=== PATIENT | female | born 1970 | race Caucasian/White ===

== ENCOUNTER 2021-12-06 00:50 | Day surgery (SDC) | payer OTHER, SELFPAY ==
[2021-11-18 10:14] VITALS: BMI 32.5
[2021-12-06 11:16] VITALS: BMI 32.5
[2021-12-06 11:18] VITALS: BP 124/74; PULSE 80; RESP 16; TEMP 36.7; O2SAT 99
--- NOTE | 2021-12-06 11:20 | PM.HPGS ---
History of Present Illness History of Present Illness Consent: Risks, benefits, and alternatives have been discussed and questions answered. Patient agrees to proceed with procedure. Chief complaint: bloating,heartburn,diarrhea,change in bowel habits Narrative: Suzan Mcintosh is a 51 year old female Was had a great deal of problems with heartburn. She has been using Pepcid with only fair results. It has gotten worse lately. She denies dysphagia. She also has had a change in bowel habits. She has had diarrhea 2 or 3 times a week. She will occasionally become constipated but her primary issue was diarrhea. She is also having a chronic periumbilical pain. There is no weight loss. There is no family history of inflammatory bowel disease or celiac disease. Review of Systems Review of Systems: All systems reviewed & are unremarkable except as noted in HPI and below PMFSH Past Medical History Medical History Bloating Change in bowel habits Heartburn Hx of malignant neoplasm of breast Lymph node cancer Obesity Periumbilical abdominal pain Surgical History Surgical History H/O hysterectomy for benign disease History of mastectomy, total Social History Social History Years smoked: 30 Smoking status: Former smoker Tobacco type: cigarettes Alcohol intake: current Alcohol use details: social Substance use: never Substance use type: does not use Living arrangements: with family Spiritual care concerns: No Meds Home Medications and Allergies Home Medications Medication Instructions Recorded Confirmed Type anastrozole 1 mg tablet 1 mg PO DAILY 11/05/21 11/18/21 History cholecalciferol (vitamin D3) 50 50 mcg PO DAILY 11/05/21 11/18/21 History mcg (2,000 unit) capsule famotidine 20 mg tablet (Pepcid) 20 mg PO BID 11/18/21 11/18/21 History Allergies Allergy/AdvReac Type Severity Reaction Status Date / Time No Known Allergies Allergy Verified 12/06/21 11:14 Vital Signs Vital Signs - 24 hr 12/06/21 11:18 Temperature 36.7 C Pulse Rate 80 Respiratory Rate 16 Blood Pressure 124/74 Pulse Oximetry 99 Oxygen Delivery Room Air Exam Const: General: alert Orientation/consciousness: patient oriented x3 Resp: Auscultation: clear to auscultation bilaterally Cardio: Rhythm: regular rhythm GI: GI Palp: Yes Soft to palpation and No Tenderness to palpation present (GI) Neuro: General: patient oriented x3 Assessment and Plan Assessment and plan (1) Heartburn: Code(s): R12 - Heartburn Status: Acute Assessment and Plan: EGD with possible biopsy or dilatation or cautery. (2) Change in bowel habits: Code(s): R19.4 - Change in bowel habit Status: Acute Assessment and Plan: Colonoscopy with possible biopsy or polypectomy or cautery or injection of substances.
[2021-12-06] MEDS: LACTATED RINGERS 1,000 ML 150 ML IV CONT (11:27)
--- NOTE | 2021-12-06 12:13 | WPDANESEPPF ---
Anes - Initial Pre Proc Eval Procedure: Operation Date: 12/06/21 12:30 Proposed Procedures p Esophagogastroduodenoscopy & Colonoscopy - Rolando Peguero MD Date/Time: 12/06/21 12:13 Surgeon: Rolando Peguero MD Pre Op Diagnosis: bloating,heartburn,diarrhea,change in bowel habits Patient Data Age: 51 Gender: F Height: 1.45 m Weight: 68.3 kg Last Vital Signs Temp 98.1 F 12/06/21 11:18 Pulse 80 12/06/21 11:18 Resp 16 12/06/21 11:18 BP 124/74 12/06/21 11:18 Pulse Ox 99 12/06/21 11:18 O2 Del Method Room Air 12/06/21 11:18 Allergies Allergy/AdvReac Type Severity Reaction Status Date / Time No Known Allergies Allergy Verified 12/06/21 11:14 Home Medications Medication Instructions Recorded Confirmed Type anastrozole 1 mg tablet 1 mg PO DAILY 11/05/21 11/18/21 History cholecalciferol (vitamin D3) 50 50 mcg PO DAILY 11/05/21 11/18/21 History mcg (2,000 unit) capsule famotidine 20 mg tablet (Pepcid) 20 mg PO BID 11/18/21 11/18/21 History Patient hx anesthesia problems: none Family hx anesthesia problems: none Results Review: All pre-operative results and documents have been reviewed as part of the pre-operative evaluation. [facility] Past Medical History Medical History Bloating Change in bowel habits Heartburn Hx of malignant neoplasm of breast Lymph node cancer Obesity Periumbilical abdominal pain Surgical History Surgical History H/O hysterectomy for benign disease History of mastectomy, total Social History Social History Years smoked: 30 Smoking status: Former smoker Tobacco type: cigarettes Alcohol intake: current Alcohol use details: social Substance use: never Substance use type: does not use Living arrangements: with family Spiritual care concerns: No Anes - Eval Final PreProcedure Day of Procedure 12/06/21 12:13 Patient weight: obese Heart: regular rate and rhythm Lungs: clear to auscultation Airway: Mallampati scale class II Neurological: alert and oriented Last oral intake: >/= 8 hours ASA classification: III Emergent: no Anesthetic plan: proceed Anesthesia type and monitoring: general GIVS and standard monitoring Results Review: All pre-operative results and documents have been reviewed as part of the pre-operative evaluation. Informed Consent: The patient's anesthetic plan and its attendant risks and benefits were discussed with the patient/family/POA. Questions were solicited and answers provided to the satisfaction of the patient/family/POA.
--- NOTE | 2021-12-06 12:36 | SUR.OPER ---
EGD: [id number] COLON: [id number]
[2021-12-06 13:01] VITALS: BP 111/72; PULSE 88; RESP 20; O2SAT 98
[2021-12-06 13:11] VITALS: BP 125/75; PULSE 80; RESP 19; O2SAT 100
[2021-12-06 13:21] VITALS: BP 128/78; PULSE 75; RESP 22; O2SAT 100
== END 2021-12-06 13:46 | disposition home or self-care (01) ==
PROVIDERS: PCP Nurse Practitioner; Visit Provider Internal Medicine Gastroenterology
PROC: 0DJ08ZZ Inspection of Upper Intestinal Tract, Via Natural or Artificial Opening Endoscopic (ICD-10-PCS; CPT 43235; principal; 2021-12-06 12:30)
DX: R19.4 Change in bowel habit (principal); R14.0 Abdominal distension (gaseous); K52.9 Noninfective gastroenteritis and colitis, unspecified; R12 Heartburn; Z85.72 Personal history of non-Hodgkin lymphomas; Z85.3 Personal history of malignant neoplasm of breast; Z87.891 Personal history of nicotine dependence; E66.9 Obesity, unspecified; Z68.32 Body mass index [BMI] 32.0-32.9, adult; K21.00 Gastro-esophageal reflux disease with esophagitis, without bleeding
CPT/HCPCS: 45380; 43239; 87081; 88305; 88312; J2001; J2704; J7120

== ENCOUNTER 2022-02-07 00:28 | Day surgery (SDC) | payer OTHER, SELFPAY ==
[2022-01-24 09:24] VITALS: BMI 32.5
--- NOTE | 2022-02-04 17:20 | PM.HPGS ---
History of Present Illness History of Present Illness Consent: Risks, benefits, and alternatives have been discussed and questions answered. Patient agrees to proceed with procedure. Chief complaint: gastric ulcer Narrative: Suzan Mcintosh is a 52 year old female Here for follow-up of a gastric ulcer. A couple of months ago she was found to have a posterior gastric ulcer which was H pylori negative. Review of Systems Review of Systems: All systems reviewed & are unremarkable except as noted in HPI and below PMFSH Past Medical History Medical History Bloating Change in bowel habits Heartburn Hx of malignant neoplasm of breast Lymph node cancer Obesity Periumbilical abdominal pain Surgical History Surgical History H/O hysterectomy for benign disease History of mastectomy, total Social History Social History Smoking packs per day: 0.5 Smoking cigarettes per day: 10.0 Years smoked: 30 Smoking pack-years: 15.00 Smoking status: Former smoker Tobacco type: cigarettes Alcohol intake: current Alcohol use details: social Substance use: never Substance use type: does not use Living arrangements: with family Spiritual care concerns: No Meds Home Medications and Allergies Home Medications Medication Instructions Recorded Confirmed Type anastrozole 1 mg tablet 1 mg PO DAILY 11/05/21 01/24/22 History cholecalciferol (vitamin D3) 50 50 mcg PO DAILY 11/05/21 01/24/22 History mcg (2,000 unit) capsule famotidine 20 mg tablet (Pepcid) 20 mg PO BID 11/18/21 01/24/22 History pantoprazole 40 mg tablet,delayed 40 mg PO QAM #90 tabs 02/02/22 Rx release Allergies Allergy/AdvReac Type Severity Reaction Status Date / Time No Known Allergies Allergy Verified 02/07/22 06:59 Exam Const: General: alert Orientation/consciousness: patient oriented x3 Resp: Auscultation: clear to auscultation bilaterally Cardio: Rhythm: regular rhythm GI: GI Palp: Yes Soft to palpation and No Tenderness to palpation present (GI) Neuro: General: patient oriented x3 Assessment and Plan Assessment and plan (1) Gastric ulcer: Code(s): K25.9 - Gastric ulcer, unspecified as acute or chronic, without hemorrhage or perforation Status: Acute Assessment and Plan: EGD with possible biopsy or dilatation or cautery.
[2022-02-07 07:02] VITALS: BP 126/76; PULSE 66; RESP 16; TEMP 36.4; O2SAT 99
[2022-02-07] MEDS: LACTATED RINGERS 1,000 ML 150 ML IV CONT (07:11)
--- NOTE | 2022-02-07 07:51 | WPDANESEPPF ---
Anes - Initial Pre Proc Eval Procedure: Operation Date: 02/07/22 08:00 Proposed Procedures p Esophagogastroduodenoscopy - Rolando Peguero MD Date/Time: 02/07/22 07:51 Surgeon: Rolando Peguero MD Pre Op Diagnosis: gastric ulcer Patient Data Age: 52 Gender: F Height: 1.45 m Weight: 71 kg Last Vital Signs Temp 97.6 F 02/07/22 07:02 Pulse 66 02/07/22 07:02 Resp 16 02/07/22 07:02 BP 126/76 02/07/22 07:02 Pulse Ox 99 02/07/22 07:02 O2 Del Method Room Air 02/07/22 07:02 Allergies Allergy/AdvReac Type Severity Reaction Status Date / Time No Known Allergies Allergy Verified 02/07/22 06:59 Home Medications Medication Instructions Recorded Confirmed Type anastrozole 1 mg tablet 1 mg PO DAILY 11/05/21 02/07/22 History cholecalciferol (vitamin D3) 50 50 mcg PO DAILY 11/05/21 02/07/22 History mcg (2,000 unit) capsule famotidine 20 mg tablet (Pepcid) 20 mg PO BID 11/18/21 02/07/22 History pantoprazole 40 mg tablet,delayed 40 mg PO QAM #90 tabs 02/02/22 02/07/22 Rx release Patient hx anesthesia problems: none Family hx anesthesia problems: none Results Review: All pre-operative results and documents have been reviewed as part of the pre-operative evaluation. [facility] Past Medical History Medical History Bloating Change in bowel habits Heartburn Hx of malignant neoplasm of breast Lymph node cancer Obesity Periumbilical abdominal pain Surgical History Surgical History H/O hysterectomy for benign disease History of mastectomy, total Social History Social History Smoking packs per day: 0.5 Smoking cigarettes per day: 10.0 Years smoked: 30 Smoking pack-years: 15.00 Smoking status: Former smoker Tobacco type: cigarettes Alcohol intake: current Alcohol use details: social Substance use: never Substance use type: does not use Living arrangements: with family Spiritual care concerns: No Anes - Eval Final PreProcedure Day of Procedure 02/07/22 07:51 Heart: regular rate and rhythm Lungs: clear to auscultation Airway: Mallampati scale class III and other (small mouth) Neurological: alert and oriented Last oral intake: >/= 8 hours ASA classification: III Emergent: no Anesthetic plan: proceed Anesthesia type and monitoring: general Results Review: All pre-operative results and documents have been reviewed as part of the pre-operative evaluation. Informed Consent: The patient's anesthetic plan and its attendant risks and benefits were discussed with the patient/family/POA. Questions were solicited and answers provided to the satisfaction of the patient/family/POA.
[2022-02-07] MEDS: BENZOCAINE (*SP) 60 ML SPRAY CAN (HURRICAINE) 1 SPRAY MUCOUS MEM (07:58)
[2022-02-07 08:06] VITALS: BP 121/86; PULSE 68; RESP 18; O2SAT 100
[2022-02-07 08:16] VITALS: BP 125/79; PULSE 70; RESP 24; O2SAT 100
[2022-02-07 08:26] VITALS: BP 128/78; PULSE 66; RESP 21; O2SAT 100
== END 2022-02-07 08:34 | disposition home or self-care (01) ==
PROVIDERS: PCP Nurse Practitioner; Visit Provider Internal Medicine Gastroenterology
PROC: 0DJ08ZZ Inspection of Upper Intestinal Tract, Via Natural or Artificial Opening Endoscopic (ICD-10-PCS; CPT 43235; principal; 2022-02-07 08:00)
DX: Z09 Encounter for follow-up examination after completed treatment for conditions other than malignant neoplasm (principal); Z87.11 Personal history of peptic ulcer disease; R14.0 Abdominal distension (gaseous); R12 Heartburn; Z85.3 Personal history of malignant neoplasm of breast; Z87.891 Personal history of nicotine dependence; K21.00 Gastro-esophageal reflux disease with esophagitis, without bleeding
CPT/HCPCS: 43235; J2704; J7120

== ENCOUNTER 2022-03-28 08:16 | Outpatient (CLI) | payer OTHER, SELFPAY ==
--- NOTE | ~2022-03-28 | CT_ITS ---
EXAMINATION: CT diagnostic chest w con DATE: 03/28/2022 08:40 INDICATION: Right-sided chest wall pain, history of breast cancer TECHNIQUE: Transaxial computed tomographic images of the chest were obtained after the administration of 75 cc of Omnipaque 350 intravenous contrast. The dose-length product (DLP) was 186.35 mGy-cm. Ite rative reconstruction was used. COMPARISON: 05/06/2019 and right axillary ultrasound from today FINDINGS: There is mild emphysema. There are changes of bilateral mastectomy with implant reconstruct ion. There is a 2.1 x 1.6 cm irregular mass in the right axilla adjacent to right axillary surgical c lips. There is a second 9 mm x 7 mm soft tissue mass of the right lateral chest wall located approxim ately 15 mm caudal to the larger mass. There is a 2 mm nodule of the left lower lobe. The lungs are f ree of focal airspace opacities. No pleural effusion or pneumothorax. The heart size is normal. The l iver is diffusely low in attenuation when compared with the spleen, consistent with hepatic steatosis . There is mild thoracic spondylosis. IMPRESSION: 1. Soft tissue masses of the right axilla as described above which could reflect recurrent breast can cer. Ultrasound-guided biopsy is recommended. Reviewed, dictated and finalized at location A. IMPRESSION: 1. Soft tissue masses of the right axilla as described above which could reflec t recurrent breast cancer. Ultrasound-guided biopsy is recommended.
--- NOTE | ~2022-03-28 | US_ITS ---
US axilla RT 03/28/2022 09:32 Indication: Palpable right axillary lump. History of breast cancer. Status post bilateral mastectomy. Procedure: High-resolution ultrasound of the right axilla Comparison: CT chest dated 03/28/2022 Findings: In the area of palpable concern in the right axilla there is an irregular shaped hypoechoic mass with dense posterior shadowing, antiparallel configuration and no significant internal vascular ity. This mass measures 1.8 x 1.6 x 1.3 cm. Impression: 1: Complex heterogeneous right axillary mass in the area of palpable concern measuring 1.8 x 1.6 x 1. 3 cm. Follow-up ultrasound-guided biopsy recommended. BI-RADS CATEGORY 4-SUSPICIOUS ABNORMALITY Reviewed, dictated and finalized at location A. Impression: 1: Complex heterogeneous right axillary mass in the area of palpable concern me asuring 1.8 x 1.6 x 1.3 cm. Follow-up ultrasound-guided biopsy recommended. BI-RADS CATEGORY 4-SUSPICIOUS ABNORMALITY
== END 2022-03-28 08:17 | disposition home or self-care (01) ==
PROVIDERS: PCP Nurse Practitioner; Visit Provider Internal Medicine Medical Oncology
DX: C50.911 Malignant neoplasm of unspecified site of right female breast (principal); R07.89 Other chest pain; M79.89 Other specified soft tissue disorders
CPT/HCPCS: 71260; 76882; Q9967

== ENCOUNTER 2022-04-07 09:18 | Outpatient (CLI) | payer OTHER, SELFPAY ==
--- NOTE | ~2022-04-07 | US_ITS ---
EXAMINATION: US_BXSTAXLIMG_US DATE: 04/07/2022 10:23 INDICATION: Right axillary mass along a surgical scar post prior breast cancer with bilateral mastect omies. TECHNIQUE: The procedure including the risks and benefits was discussed with the patient. Risks discu ssed included bleeding and infection. The patient understood the risks and agreed to proceed. The sk in overlying the right axilla was prepped and draped in usual sterile fashion. Anesthetic was admini stered with 1% lidocaine subcutaneously. An 18 gauge core biopsy needle was advanced under continuou s ultrasound observation to the lesion of interest. 4 core biopsy specimens were obtained. The need le was removed and the entry site was cleaned and dressed. Post procedure ultrasound demonstrated no hemorrhage. FINDINGS: Ultrasound images demonstrate 1.9 x 1.4 x 1.4 cm hypoechoic shadowing mass lobular margins in the subcutaneous tissues at the right axilla. Subsequent images demonstrate biopsy needle advanced into a mass. IMPRESSION: 1. Successful Ultrasound-guided biopsy of a 1.9 cm hypoechoic subcutaneous mass at the right axilla. Reviewed, dictated and finalized at location A.
== END 2022-04-07 09:19 | disposition home or self-care (01) ==
PROVIDERS: PCP Nurse Practitioner; Visit Provider Internal Medicine Medical Oncology
DX: D05.11 Intraductal carcinoma in situ of right breast (principal)
CPT/HCPCS: 20999; 76942; 88305; 88342; 88365

== ENCOUNTER 2022-04-29 07:30 | Outpatient (CLI) | payer OTHER, SELFPAY ==
--- NOTE | ~2022-04-29 | CT_ITS ---
EXAMINATION: CT abdomen pelvis w con INDICATION: Periumbilical pain, history of breast cancer TECHNIQUE: Computed tomographic images of the abdomen and pelvis were obtained after the administrati on of 100 cc of Omnipaque 350 intravenous contrast. The dose-length product (DLP) was 525.92 mGy-cm. Automated exposure control and iterative reconstruction technique were employed. COMPARISON: 03/28/2022, 05/06/2019 FINDINGS: Minimal dependent atelectasis is present in the lung bases. The heart size is normal. There are changes of mastectomy with implant reconstruction. The liver is diffusely low in attenuation whe n compared with the spleen, consistent with hepatic steatosis. There is a 5 mm hyperenhancing lesion in liver segment VIII (image 20). The spleen, pancreas, gallbladder, and adrenal glands are normal. T he right kidney is unremarkable. There is a 5 mm cyst of the left kidney. No pathologically enlarged abdominal or pelvic lymph nodes are identified. There is no free intraperitoneal gas or evidence of b owel obstruction. A large volume of colonic stool is present. IMPRESSION: 1. Indeterminate enhancing lesion in liver segment VIII. Follow-up MRI without and with contrast in 3 -6 months is recommended. 2. Diffuse hepatic steatosis. Reviewed, dictated and finalized at location F. [employer] PERFORMER IMPRESSION: 1. Indeterminate enhancing lesion in liver segment VIII. Follow-up MRI without and with contrast in 3-6 months is recommended. 2. Diffuse hepatic steatosis.
== END 2022-04-29 07:31 | disposition home or self-care (01) ==
PROVIDERS: PCP Nurse Practitioner; Visit Provider Nurse Practitioner
DX: Z85.3 Personal history of malignant neoplasm of breast (principal); R19.4 Change in bowel habit; R14.0 Abdominal distension (gaseous); R10.33 Periumbilical pain; K76.0 Fatty (change of) liver, not elsewhere classified; K76.9 Liver disease, unspecified
CPT/HCPCS: 74177; Q9967

== ENCOUNTER 2022-05-04 07:15 | Outpatient (CLI) | payer OTHER, SELFPAY ==
--- NOTE | ~2022-05-04 | NM_ITS ---
EXAMINATION: NM bone scan whole body DATE: 05/04/2022 12:02 INDICATION: Malignant neoplasm of the right breast. TECHNIQUE: 24.2 mCi Tc-99m HDP was administered intravenously. Delayed whole-body scintigrams were o btained. COMPARISON: CT abdomen and pelvis dated 04/29/2022 FINDINGS: Minimal likely degenerative joint centered uptake at the bilateral chromic clavicular, elbow and ankl e joints as well as the joints at the bilateral mid feet. Small focus of atypical mild asymmetric upt sarwat at the superolateral aspect of the left orbit. No other suspicious bone lesions identified. IMPRESSION: 1. Single atypical focus of mild increased uptake in the region of the superolateral left orbit. Give n location and absence of any additional concerning bone lesions is is unlikely to represent metastat ic disease but is of indeterminate etiology. Could consider head CT for further evaluation. Reviewed, dictated and finalized at location A. [employer] IMPRESSION: 1. Single atypical focus of mild increased uptake in the region of the superola teral left orbit. Given location and absence of any additional concerning bone lesions is is unlikely to represent metastatic disease but is of indeterminate etiology. Could consider head CT for further evaluation.
== END 2022-05-04 07:16 | disposition home or self-care (01) ==
PROVIDERS: PCP Nurse Practitioner; Visit Provider Internal Medicine Medical Oncology
DX: C50.911 Malignant neoplasm of unspecified site of right female breast (principal); Z17.0 Estrogen receptor positive status [ER+]; M89.9 Disorder of bone, unspecified
CPT/HCPCS: 78306; A9561